=== PATIENT | male | born 1945 | race Caucasian/White ===

== ENCOUNTER → 2017-04-18 | Outpatient (CLI) | payer OTHER ==
--- NOTE | 2017-04-18 13:04 | DIAGNOSTIC IMAGING REPORT ---
ULTRASOUND LEFT VENOUS DOPP LOWER EXT UNILAT CLINICAL HISTORY: Left leg pain COMPARISON STUDY: No previous studies for comparison. FINDINGS: Real-time and color flow Doppler imaging were performed. Flow was seen within the femoral, popliteal and calf veins with no intraluminal thrombus demonstrated. The saphenous vein is patent. There are patent superficial varicosities. There is a 39 x 7 x 18 mm left popliteal cyst. IMPRESSION: No evidence of left lower extremity DVT. Electronically signed by: Ariel Sosa M.D. 04/18/2017 1:03 PM Dictated Date/Time: 04/18/2017 1:02 PM
== END | disposition home or self-care (01) ==
LOC: C.ULTRBC 12:30
PROVIDERS: ATTEND Nurse Practitioner
DX: M79.662 Pain in left lower leg (principal); M79.89 Other specified soft tissue disorders; Z86.718 Personal history of other venous thrombosis and embolism

== ENCOUNTER 2018-03-26 10:25 | Inpatient (IN) | payer OTHER ==
[2018-02-27 12:23] VITALS: BMI 35.0
--- NOTE | 2018-03-05 10:43 | PAT Medication Instructions ---
Service Date Mar 05, 2018. Current Home Medication List Amlodipine (Norvasc), 10 MG PO QPM Aspirin (Aspirin Ec), 81 MG PO QAM Atorvastatin (Lipitor), 10 MG PO QAM Calcipotriene-Betamethasone Di (Calcipotriene/Betamethaso 0.005-0.064 %), 1 DOSE TOP PRN Calcium Carbonate-Simethicone (Gas-X With Maalox Extra S), 1 TAB PO PRN Cholecalciferol (Vitamin D3), 1 CAP PO QAM Fluorouracil (Topical) (Efudex), 1 APPLN TOP PRN Fluticasone Propionate (Nasal) (Flonase Allergy Relief), 2 SPRAYS INTNAS QAM Lisinopril/Hctz (Zestoretic 20MG/25MG), 1 TAB PO QAM Naproxen (Aleve), 440 MG PO BID Omeprazole (Prilosec), 40 MG PO BID Ranitidine (Zantac), 300 MG PO HS Senna/Docusate Sod (Senokot S), 2 TAB PO QAM [Antihistamine], 100 MG PO HS Medication Instructions For Your Scheduled Surgery - Hold the following medications 10 days prior to surgery per surgeon: Naproxen (Aleve), 440 MG PO BID - Hold the following medications 24 hours prior to surgery: Calcipotriene-Betamethasone Di (Calcipotriene/Betamethaso 0.005-0.064 %), 1 DOSE TOP PRN Fluorouracil (Topical) (Efudex), 1 APPLN TOP PRN - Hold the following medications the morning of surgery: Calcium Carbonate-Simethicone (Gas-X With Maalox Extra S), 1 TAB PO PRN Cholecalciferol (Vitamin D3), 1 CAP PO QAM Lisinopril/Hctz (Zestoretic 20MG/25MG), 1 TAB PO QAM Senna/Docusate Sod (Senokot S), 2 TAB PO QAM - Take the following medications the morning of surgery with a sip of water: Aspirin (Aspirin Ec), 81 MG PO QAM Atorvastatin (Lipitor), 10 MG PO QAM Fluticasone Propionate (Nasal) (Flonase Allergy Relief), 2 SPRAYS INTNAS QAM Omeprazole (Prilosec), 40 MG PO BID - Take the following medications as scheduled the night before surgery: Amlodipine (Norvasc), 10 MG PO QPM Omeprazole (Prilosec), 40 MG PO BID Ranitidine (Zantac), 300 MG PO HS [Antihistamine], 100 MG PO HS If you have any questions please call us at [phone] or [phone] or [phone]
--- NOTE | 2018-03-05 11:12 | DIAGNOSTIC IMAGING REPORT ---
CHEST 2 VIEWS ROUTINE CLINICAL HISTORY: PAT preoperative evaluation COMPARISON STUDY: No previous studies for comparison. FINDINGS: The bones soft tissues and hemidiaphragms are normal. The cardiomediastinal silhouette is normal. The lungs are clear. The pulmonary vasculature is normal. Considerable degenerative change thoracic spine. IMPRESSION: No acute process. The above report was generated using voice recognition software. It may contain grammatical, syntax or spelling errors. Electronically signed by: Aydin Ziegler M.D. 03/05/2018 11:11 AM Dictated Date/Time: 03/05/2018 11:11 AM
--- NOTE | 2018-03-10 11:50 | HISTORY & PHYSICAL EXAMINATION ---
DATE OF ADMISSION: 03/26/2018 CHIEF COMPLAINT: Left knee pain. HISTORY OF PRESENT ILLNESS: A 72-year-old gentleman who presents for surgical treatment of his left knee. He has got a history of bilateral knee pain and discomfort for quite some time. He does have a history of multiple myelomas and was putting off a knee surgery until he has been cleared to this. He has now been off his chemotherapy for 5 months and cleared to proceed with knee surgery. The left knee bothers more than the right. He has taken anti-inflammatories which helped a little bit. He has had some GI irritation and therefore limited by the medicines. Pain has become more debilitating. It is affecting his quality of life and ability to get around. The more he walks, the more it hurts. He would like to have his left knee replaced. The patient has a history of a DVT in the past in his left leg 8 years ago due to immobilization. He has got no known clotting disorder and on a baby aspirin daily. 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 He does okay with titanium metals. He did have an ankle fusion in the past and had the metal stephanie taken out. PAST MEDICAL HISTORY: 1. Hypertension. 2. Sleep apnea with CPAP machine. 3. DVT in left lower extremity without known clotting disorder. 4. Hiatal hernia. 5. Gastroesophageal reflux disease. 6. History of multiple myeloma in remission. PREVIOUS SURGERIES: Include: 1. Left ankle arthrodesis. 2. Left ankle hardware removal. 3. Hiatal hernia. 4. Vein stripping. ALLERGIES: TAPE. CURRENT MEDICINES: Include: 1. Antihistamine 50 mg 2 tablets at bedtime. 2. Amlodipine 10 mg a day. 3. Baby aspirin 81 mg. 4. Lipitor 10 mg a day. 5. Calcipotriene 0.005% as needed. 6. Calcium carbonate. 7. Simethicone as needed. 8. Flonase nasal spray 2 sprays in each nostril. 8. Lisinopril/hydrochlorothiazide 20/25 once a day. 9. Naproxen 220 twice a day. 10. Omeprazole 40 mg twice a day. 11. Ranitidine 300 mg at bedtime. 12. Senna/docusate sodium 8.6/50 mg. 13. Vitamin E 5000 units. SOCIAL HISTORY: A 72-year-old male. He is from [place]. He is . One drinks per week. Does not chew. No smoking history. FAMILY HISTORY: Significant for kidney stones and blood clots. REVIEW OF SYSTEMS: Significant for this one DVT in the past. He does have history of vein stripping. Denies any chest pain or shortness of breath. No other history of DVT or PEs in the past other than this one episode. No known clotting disorder. PHYSICAL EXAMINATION: GENERAL: Physical examination reveals a healthy pleasant, middle-aged male. He looks to be in pretty good health. HEENT: Benign. NECK: Supple. No lymphadenopathy. LUNGS: Clear to auscultation. HEART: Has a regular rate and rhythm. ABDOMEN: Soft, nontender, nondistended. EXTREMITIES: Grossly neurovascularly intact except as follows: Examination of both knees reveals the patient ambulates independently. Examination of the left knee reveals fairly neutral alignment. He has got diffuse bony hypertrophy. Moderate size knee effusion. Range of motion is 5-125. No instability. No pain with hip motion. Examination of the right knee reveals slight varus alignment. He has got bony hypertrophy medially. Range of motion is 5-125. No instability. X-RAYS: X-rays of both knees were reviewed. He has advanced bilateral knee DJD. He has got tricompartment disease in the left and mostly medial compartment on the right. He has got some chondrocalcinosis throughout. 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 ASSESSMENT: A 72-year-old male with a history of apparent metal allergy, DVT and multiple myeloma with advanced bilateral knee degenerative joint disease, left side more symptomatic than the right. He is currently in remission from his multiple myeloma and would like to have his left knee replaced. PLAN: We are going to proceed with left knee replacement. The risks and benefits of this procedure were explained to the patient including but not limited to DVT, PE, , infection, neurological injury, vascular injury, bleeding problem, pain, limited range of motion, stiffness, failure to relieve symptoms, incomplete relief of symptoms, need for further surgery in the future, fracture, leg length inequality, nerve palsy, etc. The patient understands and desires to proceed. Informed consent was obtained. I did talk to him about with history of DVT, he is at risk for increased DVT and PE. We will use Xarelto postoperatively for 1 month. We did talk to him about holding his lisinopril the morning of surgery and Naprosyn 2 weeks before. He is planning to be discharged to home using his home health program and his 's assistance. Due to his apparent metal allergy, we will use a [employer] knee. We will also avoid putting metal stephanie in his skin and just use sutures. MALLORY
[2018-03-26] VITALS (8 sets, daily range): BP systolic 62–155; BP diastolic 39–88; PULSE 52–93; TEMP 36.6–36.8; O2SAT 95–97; Ht 177.8 cm; Wt 110.9 kg
[~2018-03-26] VITALS: Ht 177.8 cm; Wt 110.9 kg
[~2018-03-26 10:25] MED LIST: ACETAMINOPHEN 500 MG TAB PO SCH; AMLO10TA3 PO; ANTIHISTAMINE PO; ASPI81TA28 PO; ATOR10TA82 PO; BUPIVACAINE 0.5 % 5 MG/1 ML PF 10ML VIAL ONE; CALC0.02 TOP; CALCCHW9 PO; CEFAZOLIN 2000MG IV PUSH 15 ML IV SCH; CHOL2000 PO; FAMOTIDINE 20 MG TAB PO SCH; FLUO5CRE TOP; FLUT0.15 INTNAS; GABAPENTIN 300 MG CAP PO SCH; LACTATED RINGER'S 1000ML 1,000 ML IV SCH; LACTATED RINGER'S 1000ML 500 ML IV SCH; LACTATED RINGER'S 1000ML IV SCH; LISI-788 PO; METOCLOPRAMIDE HCL 10 MG TAB PO SCH; NAPR1TAB9 PO; PRLSR20 PO; RANI300T2 PO; ROPIVACAINE 0.5% 5 MG/ML 30 ML VIAL ONE; SENN-65 PO
--- NOTE | 2018-03-26 11:28 | History & Physical Bridge Note ---
H&P Re-Evaluation Bridge Note: I have examined the patient, reviewed the History & Physical and in the interval since the performance of the History & Physical I have noted the following changes of clinical significance: No changes noted
[2018-03-26] MEDS ORDERED: MIDAZOLAM HCL 1 MG/ML 2ML VIAL ONE ×2 (13:06)
[2018-03-26] MEDS ORDERED: BUPIVACAINE LIPOSOME 1/3% 266 MG/20 ML VIAL ONE (13:53)
[2018-03-26] MEDS ORDERED: SODIUM CHLORIDE 0.9% PF 50 ML VIAL ONE (13:53)
[2018-03-26] MEDS ORDERED: BACITRACIN 50000 UNIT VIAL ONE (13:53)
[2018-03-26] MEDS ORDERED: BUPIVACAINE 0.25% 30 ML VIAL ONE (13:54)
[2018-03-26] MEDS ORDERED: EpINEphrine INJ 1MG/ML AMP 1 MG/ML AMP ONE (13:54)
[2018-03-26] MEDS ORDERED: PROPOFOL IV EMULSION 10 MG/ML 20 ML VIAL ONE (14:06)
[2018-03-26] MEDS ORDERED: ONDANSETRON INJ 2 MG/ML 2 ML VIAL ONE (14:06)
[2018-03-26] MEDS ORDERED: ATROPINE SULFATE 0.1 MG/ML 5ML SYR IV PRN (14:30)
[2018-03-26] MEDS ORDERED: KETOROLAC TROMETHAMINE 15 MG/ML VIAL IV. PRN (14:30)
[2018-03-26] MEDS ORDERED: EpHEDrine SULFATE INJ 50 MG/ML AMP IV PRN (14:30)
[2018-03-26] MEDS ORDERED: ONDANSETRON INJ 2 MG/ML 2 ML VIAL IV PRN ×2 (14:30→16:15)
[2018-03-26] MEDS ORDERED: HYDROmorphone INJ 0.5 MG/0.5 ML SYR IV PRN ×2 (14:30→16:15)
[2018-03-26] MEDS ORDERED: PHENYLEPHRINE 100MCG/ML 5ML SYR IV PRN (14:30)
[2018-03-26] MEDS: BUPIVACAINE LIPOSOME 266 MG, BUPIVACAINE/EPINEPHRINE INJ 50 ML, SODIUM CHLORIDE 0.9% PF... INFIL SCH ×15 (15:40→15:51)
[2018-03-26] MEDS ORDERED: FENTANYL CITRATE INJ 50 MCG/1 ML 2 ML VIAL ONE (15:44)
--- NOTE | 2018-03-26 16:14 | [facility] Post Operative Brief Note ---
Immediate Operative Summary Operative Date Mar 26, 2018. Pre-Operative Diagnosis Degenerative Joint Disease, Left Knee Post-Operative Diagnosis Degenerative Joint Disease, Left Knee Procedure(s) Performed Left Total Knee Arthroplasty Surgeon Dr. Misty Burns Foreign [employer] Specialist Surgeon(s) Noa Garza PA-C Estimated Blood Loss 100 ml Findings Consistent with Post-Op Diagnosis Fluids (cc crystalloids) 1800 cc Specimens a. Bone and Tissue, Left Knee Drains None Anesthesia Type MAC Spinal Regional Complication(s) none Disposition Accompanied Pt To Recover: no Disposition: Recovery Room / PACU Overlapping Procedure I was present for: the critical portions of procedure. I was immediately available: during the entire case
[2018-03-26] MEDS ORDERED: [UNRECOGNIZED DRUG - OTHER] TOP SCH (16:15)
[2018-03-26] MEDS ORDERED: FLUOROURACIL TOP SCH (16:15)
[2018-03-26] MEDS ORDERED: BISACODYL 10 MG SUPP PR PRN (16:15)
[2018-03-26] MEDS ORDERED: CALCIUM CARBONATE SIMETHICONE PO SCH (16:15)
[2018-03-26] MEDS ORDERED: METOCLOPRAMIDE HCL INJ 5 MG/ML 2 ML VIAL IV PRN (16:15)
[2018-03-26] MEDS ORDERED: MAGNESIUM HYDROXIDE SUSP 30 ML UDC PO PRN (16:15)
[2018-03-26] MEDS ORDERED: [UNRECOGNIZED DRUG - OTHER] PO SCH (16:15)
[2018-03-26] MEDS ORDERED: SILVER SULFADIAZINE 1% CR 50 GM JAR EXT PRN (16:15)
[2018-03-26] MEDS ORDERED: TAMSULOSIN HCL 0.4 MG CAP PO PRN (16:15)
[2018-03-26] MEDS ORDERED: CEFAZOLIN IV 2,000 MG in DEXTROSE 5% 50ML 50 ML IV SCH (16:15)
[2018-03-26] MEDS ORDERED: ZOLPIDEM TARTRATE 5 MG TAB PO PRN (16:15)
[2018-03-26] MEDS ORDERED: ALUMINUM/MAGNESIUM/SIMETH (MAALOX MAX) 30 ML UDC PO PRN (16:15)
--- NOTE | 2018-03-26 16:45 | DIAGNOSTIC IMAGING REPORT ---
L KNEE 2 VIEWS ROUTINE CLINICAL HISTORY: Degenerative arthritis. Postoperative study. COMPARISON: Outside radiograph performed January 2018 DISCUSSION: There are postsurgical changes of a total left knee arthroplasty and patellar resurfacing. The femoral tibial components appear well seated. There is air present within the soft tissues consistent with recent surgery. IMPRESSION: Postsurgical changes of a total left knee arthroplasty. Electronically signed by: Ariel Sosa M.D. 03/26/2018 4:44 PM Dictated Date/Time: 03/26/2018 4:43 PM
--- NOTE | 2018-03-26 16:58 | Anesthesiology Progress Note ---
Anesthesia Post Op Note Date & Time Mar 26, 2018 at 16:58 Vital Signs Pain Intensity: 0 Vital Signs Past 12 Hours Date Time Temp Pulse Resp B/P (MAP) Pulse Ox O2 Delivery O2 Flow Rate FiO2 03/26/18 16:40 36.9 74 13 142/80 100 Room Air 03/26/18 16:30 82 18 128/84 0 Room Air 03/26/18 16:23 36.8 77 11 152/91 98 Room Air 03/26/18 11:14 36.8 93 22 133/88 95 Room Air Notes Mental Status: alert / awake / arousable, participated in evaluation Pt Amnestic to Procedure: Yes Nausea / Vomiting: adequately controlled Pain: adequately controlled Airway Patency, RR, SpO2: stable & adequate BP & HR: stable & adequate Hydration State: stable & adequate Neuraxial Anesthesia: was administered, sensory block is resolving Anesthetic Complications: no major complications apparent
[2018-03-26] MEDS: D5W AND 1/2NSS + 20MEQ KCL 1,000 ML IV SCH (18:07)
[2018-03-26] MEDS: TRAMADOL HCL 50 MG TAB PO PRN ×2 (18:52→19:37)
[2018-03-26] MEDS: FERROUS GLUCONATE 324 MG TAB PO SCH (19:01)
--- NOTE | 2018-03-26 19:17 | OPERATIVE REPORT ---
DATE OF OPERATION: 03/26/2018 SURGEON: Edward Burns MD MARKETING COMMUNICATIONS MANAGER: MERI Stout PREOPERATIVE DIAGNOSIS: Left knee degenerative joint disease. POSTOPERATIVE DIAGNOSIS: Left knee degenerative joint disease. PROCEDURE PERFORMED: Left cemented posterior stabilized total knee arthroplasty. COMPLICATIONS: None. ESTIMATED BLOOD LOSS: 100 mL. FLUID REPLACEMENT: 1800 mL crystalloid fluid replacement. TOURNIQUET TIME: 68 minutes at 300 mmHg. ANESTHESIA: Spinal with adductor canal block. DRAINS: None. SPECIMENS: Left knee sent for pathology. OPERATIVE INDICATIONS: A 72-year-old gentleman who has had a long history of bilateral knee pain and discomfort, left side greater than the right. He has been through extensive conservative treatment over the years, which became less successful for that. Unfortunately, he developed multiple myeloma and required treatment for that. He has been through treatment and now elected to proceed with total knee arthroplasty. The patient does have an apparent metal allergy. He has reaction to metal although he does okay with titanium. Therefore, we used a [employer] zirconium knee arthroplasty in place of skin nylon stitches as opposed to using stephanie. OPERATIVE FINDINGS: Operative findings revealed advanced left knee DJD. He had extensive grade 4 changes of the patellofemoral joint. He had focal grade 4 changes of the medial femoral condyle and medial tibial plateau as well as the lateral femoral condyle. He has a slight valgus deformity to his knee. Moderate-sized knee joint effusion. OPERATIVE IMPLANTS: Operative implants consisted of: 1. Gro[employer]hew size 7 posterior stabilized zirconium femoral component. 2. Gro[employer]hew size 6 tibial tray. 3. An 11 mm posterior stabilized polyethylene insert. 4. A 35 x 9 all poly patella. OPERATIVE PROCEDURE: The patient was taken to the operating room, identified, and placed on the operative room table in the supine position. All contact areas were appropriately padded. IV antibiotics were provided by the anesthesia team. A spinal anesthetic and adductor canal block had been provided in the holding area. Kirkland catheter was placed in a sterile fashion. The left thigh tourniquet was then placed and the left lower extremity was then prepped and draped in usual sterile fashion. Left leg was elevated and exsanguinated with Esmarch and tourniquet was placed at 300 mmHg. An anterior approach of the left knee was then performed through a longitudinal incision centered over the patella. Sharp dissection was carried through the subcutaneous tissues down to the level of the extensor mechanism. Medial parapatellar arthrotomy incision was made. Some subperiosteal dissection was carried out medially. The fat pad was resected from beneath the patellar tendon. Lateral patellofemoral ligament was released. Patella was everted and knee was flexed. The osteophytes were taken off the distal femur. The ACL and PCL were then released from the distal femur and the tibia subluxated anteriorly. The external tibial alignment jig was then placed in the anterior face of the tibia and removed 8 mm medially. Proximal tibial cut was made to remove about 3-4 mm of bone from the medial side. Attention was then sized to a size 6. Attention was then drawn to the femur. The distal femur was entered with a sharp drill bit. Intramedullary canal was suctioned. A left 6-degree valgus cutting guide was placed. Distal femoral cutting block was pinned in place. Distal femoral cut was made to take an additional 2 mm of bone off the distal femur. The femur was then sized to a size 70. We downsized this slightly. The AP cutting block was pinned parallel to the epicondylar axis, which was 6 degrees of external rotation. The anterior cut, anterior cord, posterior cut, posterior chamfer, and anterior chamfer cuts were then made. I then flexed the knee. The remnants of the medial and lateral menisci were excised. The osteophytes were taken off the posterior aspect of the femur. The femoral component was placed. The notch cutting guide was placed and the notch cut was made. The trochlear groove was placed. The tibia was subluxated anteriorly. The tibial tray was pinned in place. The drill and the stem punch were used to create a defect in the proximal tibia for the tibial tray. The knee was then trialed and the 11 mm insert fit most appropriately. Attention was drawn over the patella. The patella was cleaned of all soft tissues. Patella thickness measured 22 mm in thickness and was cut down to 14. It was sized to a size 35 patella. Lug holes were drilled for a 35 patella. Lateral osteophyte was removed. Patella button was placed. Knee was taken through range of motion, patella tracked very nicely with the no thumbs test. Attention was then drawn toward placement of permanent components. All trial components were removed. A bone plug was placed in the distal femur to limit blood loss. A double batch of Palacos G cement was mixed. A [employer]hew zirconium Journey II, size 7 posterior stabilized femoral component, size 6 tibial tray, and a 11 mm posterior stabilized polyethylene insert, a 35.9 all poly patella then cemented in place. Knee was brought out into full extension until cement hardened. A final cement check was then performed. The pericapsular tissues were injected with a total of 100 mL of a combination of 20 mL of Exparel, 30 mL of normal saline, 50 mL of 0.25% Marcaine with epinephrine. The patient did not get any tranexamic acid. The tourniquet was then let down for final tourniquet time of 68 minutes. Hemostasis was assured using electrocautery. The wound was once again irrigated. The extensor mechanism was then closed with a combination of #1 PDS suture and #1 Vicryl suture in a [id number] fashion. Extensor mechanism was checked and found to be intact. The subcutaneous tissues were then closed with 2-0 Dexon suture in a buried interrupted fashion. Skin was then closed with 3-0 nylon suture in a horizontal mattress fashion. The leg was then cleaned and dried and a sterile dressing of Xeroform, 4 x 4's, sterile cast padding, and Jese bandage were applied. The patient transferred to the recovery room in stable condition. The patient tolerated the procedure well with no complication. All needle and sponge counts were correct at the end of the operation. I attest to the content of the Intraoperative Record and any orders documented therein. Any exception s are noted below.
[2018-03-26] MEDS: KETOROLAC TROMETHAMINE 15 MG/ML VIAL IV. SCH (19:38)
[2018-03-26] MEDS: DOCUSATE SODIUM 100 MG CAP PO SCH (20:22)
[2018-03-26] MEDS: RANITIDINE HCL 150 MG TAB PO SCH (20:22)
[2018-03-26] MEDS: PANTOprazole SOD 40 MG TAB PO SCH (20:22)
[2018-03-26] MEDS: SENNA 8.6 MG TAB PO SCH (20:23)
[2018-03-26] MEDS ORDERED: ANTIHISTAMINE PO SCH (21:00)
[2018-03-26] MEDS: CEFAZOLIN IV 2,000 MG in SYRINGE 0 ML IV SCH (21:49)
[2018-03-26] MEDS: ACETAMINOPHEN 500 MG TAB PO SCH (21:50)
[2018-03-27] MEDS: D5W AND 1/2NSS + 20MEQ KCL 1,000 ML IV SCH ×3 (01:55→13:59)
[2018-03-27] MEDS: KETOROLAC TROMETHAMINE 15 MG/ML VIAL IV. SCH ×3 (01:57→13:58)
[2018-03-27 02:45] VITALS: BP 138/73; PULSE 74; TEMP 36.7; O2SAT 96
[2018-03-27 04:30] LABS: HEMATOCRIT 32.9 % (42-52); HEMOGLOBIN 11.3 g/dL (14.0-18.0); MEAN CELL VOLUME 88.2 fL (80-100); MEAN CORPUSCULAR HEMOGLOBIN 30.3 pg (25-34); MEAN CORPUSCULAR HGB CONC 34.3 g/dl (32-36); MEAN PLATELET VOLUME 9.2 fL (7.4-10.4); PLATELET COUNT 193 K/uL (130-400); RED CELL DISTRIBUTION WIDTH CV 12.9 % (11.5-14.5); RED CELL DISTRIBUTION WIDTH SD 41.8 fL (36.4-46.3); WHITE BLOOD COUNT 8.92 K/uL (4.8-10.8)
[2018-03-27 04:52] LABS: ALBUMIN 2.8 gm/dl (3.4-5.0); CALCIUM 8.9 mg/dl (8.5-10.1); CREATININE 0.82 mg/dl (0.60-1.40); POTASSIUM 4.6 mmol/L (3.5-5.1); TOTAL PROTEIN 5.6 gm/dl (6.4-8.2)
[2018-03-27] MEDS: CEFAZOLIN IV 2,000 MG in SYRINGE 0 ML IV SCH (06:00)
[2018-03-27] MEDS: ACETAMINOPHEN 500 MG TAB PO SCH ×3 (06:01→21:22)
[2018-03-27 07:29] VITALS: BP 121/70; PULSE 79; TEMP 36.6; O2SAT 96
--- NOTE | 2018-03-27 07:54 | Anesthesiology Progress Note ---
Anesthesia Post Op Note Date & Time Mar 27, 2018 at 07:53 Vital Signs Pain Intensity: 8.0 Vital Signs Past 12 Hours Date Time Temp Pulse Resp B/P (MAP) Pulse Ox O2 Delivery O2 Flow Rate FiO2 03/27/18 07:29 36.6 79 18 121/70 (87) 96 Room Air 03/27/18 02:45 36.7 74 16 138/73 (94) 96 CPAP 03/26/18 23:15 Room Air CPAP 03/26/18 22:46 36.8 71 16 127/74 (91) 97 Room Air 03/26/18 21:53 74 150/69 (96) 03/26/18 20:40 76 111/61 (78) 03/26/18 20:35 72 105/88 (94) 03/26/18 20:30 52 62/39 (47) Notes Mental Status: alert / awake / arousable, participated in evaluation Pt Amnestic to Procedure: Yes Nausea / Vomiting: adequately controlled Pain: adequately controlled Airway Patency, RR, SpO2: stable & adequate BP & HR: stable & adequate Hydration State: stable & adequate Anesthetic Complications: no major complications apparent
--- NOTE | 2018-03-27 08:26 | PROGRESS NOTE ---
DATE: 03/27/2018 SUBJECTIVE: A 72-year-old gentleman postop day 1 from a left knee replacement. He is doing pretty well. Pain is controlled. He had a reasonable night. No chest pain, no shortness of breath. Not feeling dizzy or lightheaded. OBJECTIVE: VITAL SIGNS: Temperature 36.6. Stable. GENERAL: Examination shows a pleasant elderly male. He is lying in bed, looks pretty comfortable. EXTREMITIES: Examination of the left leg reveals the leg to be well aligned. Dressing is clean, dry, and intact. He can dorsiflex and plantarflex his foot appropriately. He is neurologically intact. LABORATORY DATA: Hemoglobin 11.3, hematocrit 32.9. Electrolytes are stable. ASSESSMENT: A 72-year-old gentleman postop day 1 from a left knee replacement, doing well. His pain is controlled. He is neurologically intact. PLAN: 1. DVT prophylaxis including thigh-high TEDs, SCDs, and we are going to treat him with Xarelto for 30 days due to his history of thrombosis in the past and his multiple myeloma. 2. PT/OT. Weightbear as tolerated. Left total knee protocol. 3. Pain control, doing well with current pain regimen. 4. Disposition. He is hoping to be discharged to home with some home health once adequately recovered.
[2018-03-27] MEDS: FLUTICASONE PROPIONATE NA SPR 16 GM BTL SCH (08:54)
[2018-03-27] MEDS: MULTIVITAMIN TAB PO SCH (08:54)
[2018-03-27] MEDS: PANTOprazole SOD 40 MG TAB PO SCH ×2 (08:55→19:24)
[2018-03-27] MEDS: FERROUS GLUCONATE 324 MG TAB PO SCH ×3 (08:55→18:27)
[2018-03-27] MEDS: DOCUSATE SODIUM/SENNA 50/8.6MG TAB PO SCH (08:55)
[2018-03-27] MEDS: CHOLECALCIFEROL 1000 INTER.UNIT TAB PO SCH (08:55)
[2018-03-27] MEDS: ATORVASTATIN 10 MG TAB PO SCH (08:55)
[2018-03-27] MEDS: AMLODIPINE BESYLATE 5 MG TAB PO SCH (08:56)
[2018-03-27] MEDS: LISINOPRIL/HCTZ 20/25MG TAB PO SCH (08:56)
[2018-03-27] MEDS: DOCUSATE SODIUM 100 MG CAP PO SCH ×2 (08:56→21:20)
[2018-03-27] MEDS ORDERED: PANTOprazole SOD 40 MG TAB PO SCH (09:00)
[2018-03-27] MEDS: TRAMADOL HCL 50 MG TAB PO PRN ×4 (09:28→23:38)
[2018-03-27 10:01] VITALS: BP 160/77; PULSE 88; O2SAT 97
[2018-03-27] MEDS: ASPIRIN 81 MG ECTAB PO SCH (10:03)
[2018-03-27 11:11] VITALS: BP 146/74; PULSE 90; TEMP 36.4; O2SAT 94
[2018-03-27 15:00] VITALS: BP 131/67; PULSE 90; TEMP 36.8; O2SAT 97
[2018-03-27] MEDS ORDERED: RIVAROXABAN 10 MG TAB PO SCH (17:00)
[2018-03-27] MEDS: SENNA 8.6 MG TAB PO SCH (21:21)
[2018-03-27] MEDS: RANITIDINE HCL 150 MG TAB PO SCH (21:21)
[2018-03-27 23:29] VITALS: BP 163/79; PULSE 94; TEMP 36.7; O2SAT 92
[2018-03-28] MEDS: TRAMADOL HCL 50 MG TAB PO PRN ×3 (05:05→13:06)
[2018-03-28] MEDS: ACETAMINOPHEN 500 MG TAB PO SCH (05:06)
[2018-03-28 06:40] VITALS: BP 156/77; PULSE 88; TEMP 37.3; O2SAT 94
[2018-03-28 08:16] VITALS: O2SAT 94
[2018-03-28 08:19] VITALS: BP 156/77; PULSE 88; TEMP 37.3; O2SAT 94
[2018-03-28] MEDS ORDERED: ULT50X PO (08:31)
[2018-03-28] MEDS ORDERED: XRL10 PO (08:31)
[2018-03-28] MEDS ORDERED: ACET-24 PO (08:31)
--- NOTE | 2018-03-28 08:33 | Discharge Instructions ---
Discharge Instructions Date of Service Mar 28, 2018. Admission Reason for Admission: Left Knee Degenerative Joint Disease Discharge Discharge Diagnosis / Problem: Left Knee Replacement Discharge Goals Goal(s): Decrease discomfort, Improve function, Increase independence, Improve disease control, Therapeutic intervention Activity Recommendations Activity Limitations: per Instructions/Follow-up section Weightbearing Status: Left weightbearing . Instructions / Follow-Up Instructions / Follow-Up ACTIVITY RECOMMENDATIONS: Physical Therapy: * You will go to physical therapy three times each week for four to six weeks after your surgery in order to regain your knee range of motion and to retrain your knee to work properly. * It is just as important to make sure you are getting your knee perfectly straight as it is to regain your knee bend. * Taking a pain pill an hour before therapy can help you have a more productive and comfortable therapy session. Home Exercise: * You were shown a series of exercises (heel props, heel slides, etc.) in the hospital. Do these exercises three to four times each day including the exercises you were shown in physical therapy. Walking: * Get up and walk several times each day. For the first four weeks, try not to stand or walk for more than one hour at a time. If you do stand or walk for more than one hour, you will not hurt anything, but your knee and leg will likely swell. * As you feel comfortable, you may change from the walker or crutches to a cane and then to independent walking. MEDICATIONS: New Medicine: * You will likely be taking one or more of these medications: 1. Tramadol - A quick and shorter-acting pain medication. Take one to two tablets every four to six hours to lessen your pain. 2. Xarelto - Thins your blood to lessen the chance of forming a blood clot. * The most common side effects of pain medicine and iron are nausea and constipation. If nausea or constipation is too much of a problem or if you have any questions about your new medicines or doses, call [facility] at . We will try to help you manage these issues. VERY IMPORTANT TO READ AND REVIEW" Pain: * The immediate post-operative period after knee replacement surgery is often quite painful. * You are given a prescription for pain medicine. You should take it, as directed, when you need it, especially before physical therapy and before going to bed. Pain that interferes with sleep is very common and can last several months. * You will likely need pain medicine for the first four to six weeks. It will not stop all of the pain. The pain will lessen and as you feel better, you may change to milder pain medicine such as Tylenol. * The most common side effects of pain medicine are nausea and constipation, so don't take more than you need. SPECIAL CARE INSTRUCTIONS: TEDs/Elastic Stockings: * The white elastic stockings help limit swelling and prevent blood clots from forming in your legs. The more you wear them, the more they work. * Wear them for six weeks after knee replacement surgery and four weeks after partial knee replacement. Prevention of Infection: * Take antibiotics one hour before any dental cleaning, dental work, urological procedure, gastrointestinal procedure or any invasive surgery in order to prevent your new joint from getting infected. * You may get the antibiotics from the doctor performing the procedure or you may call our office at before and we will call in a prescription to the pharmacy of your choice. Things to Watch For: * Drainage from the incision site that occurs more than one week after your surgery. * Severely increased knee/leg pain or swelling. * Increased redness at the incision site. * Fever above 102 degrees Fahrenheit. * Unusual chest pain or shortness of breath. * Unusual pain or burning with urination. Call [facility] at with any of the above problems or if you have any questions about your medicines or recovery. FOLLOW UP VISIT: Make an appointment to see your doctor for approximately two weeks after surgery for a progress check and staple removal by calling the office at . Current Hospital Diet Patient's current hospital diet: Regular Diet Discharge Diet Recommended Diet: Regular Diet Procedures Procedures Performed: Left Total Knee Arthroplasty Pending Studies Studies pending at discharge: no Medical Emergencies . Who to Call and When: Medical Emergencies: If at any time you feel your situation is an emergency, please call [phone] immediately. . Non-Emergent Contact Non-Emergency issues call your: Surgeon . "Provider Documentation" section prepared by Edward Burns. .
[2018-03-28 08:43] VITALS: BP 154/79; PULSE 89
[2018-03-28] MEDS: DOCUSATE SODIUM 100 MG CAP PO SCH (08:44)
[2018-03-28] MEDS: CHOLECALCIFEROL 1000 INTER.UNIT TAB PO SCH (08:44)
[2018-03-28] MEDS: DOCUSATE SODIUM/SENNA 50/8.6MG TAB PO SCH (08:44)
[2018-03-28] MEDS: FERROUS GLUCONATE 324 MG TAB PO SCH ×2 (08:45→13:06)
[2018-03-28] MEDS: MULTIVITAMIN TAB PO SCH (08:45)
[2018-03-28] MEDS: FLUTICASONE PROPIONATE NA SPR 16 GM BTL SCH (08:45)
[2018-03-28] MEDS: LISINOPRIL/HCTZ 20/25MG TAB PO SCH (08:46)
[2018-03-28] MEDS: ATORVASTATIN 10 MG TAB PO SCH (08:46)
[2018-03-28] MEDS: AMLODIPINE BESYLATE 5 MG TAB PO SCH (08:46)
[2018-03-28] MEDS: PANTOprazole SOD 40 MG TAB PO SCH (08:46)
[2018-03-28] MEDS: ASPIRIN 81 MG ECTAB PO SCH (08:46)
--- NOTE | 2018-03-28 08:59 | PROGRESS NOTE ---
DATE: 03/28/2018 SUBJECTIVE: A 72-year-old gentleman postop day 2 from a left knee replacement. He is doing pretty well. Having significant pain. He is doing okay with the pain medicine. No chest pain or shortness of breath. Not feeling dizzy or lightheaded. OBJECTIVE: VITAL SIGNS: Temperature 37.3. Vital signs stable. GENERAL: Reveals a pleasant, middle-aged male. He is sitting up in the bedside chair and looks pretty comfortable. EXTREMITIES: Examination of the left leg reveals the dressing to be clean, dry, and intact. Not much in the way of swelling. No drainage. Calf is soft and supple. He is neurologically intact. ASSESSMENT: A 72-year-old gentleman postop day 2 from left knee replacement, doing pretty well. Having some pain which is unexpected. Given the option, I have increased his pain medicine oxycodone, but he really would like to just stick with the tramadol and the Tylenol. PLAN: 1. DVT prophylaxis including thigh-high TEDs, SCDs, and Xarelto for a month. 2. PT, OT. Weight bear as tolerated. Left total knee protocol. 3. Pain control. We are going to stick with the tramadol and the Tylenol and try and use it frequently on a more scheduled pattern. 4. Disposition: Plan to discharge to home with some home health later today if doing okay.
== END 2018-03-28 14:17 | disposition home health service (06) | DRG 470 ==
LOC: C.ACU 10:25 → C.3E 16:20 → ENRESERV 16:47 → UNDODISIN 03-28 10:31
PROVIDERS: ADMIT Orthopaedic Surgery Sports Medicine; ATTEND Orthopaedic Surgery Sports Medicine
PROC: 0SRD0J9 Replacement of Left Knee Joint with Synthetic Substitute, Cemented, Open Approach (ICD-10-PCS; principal; 2018-03-26 13:15)
DX: M17.12 Unilateral primary osteoarthritis, left knee (principal); I10 Essential (primary) hypertension; G47.30 Sleep apnea, unspecified; K21.9 Gastro-esophageal reflux disease without esophagitis; Z79.82 Long term (current) use of aspirin; Z79.899 Other long term (current) drug therapy; Z86.718 Personal history of other venous thrombosis and embolism; Z91.09 Other allergy status, other than to drugs and biological substances

== ENCOUNTER → 2018-03-31 | Outpatient (CLI) | payer OTHER ==
[~2018-03-31] MED LIST changes: +ACET-24 PO; -ACETAMINOPHEN 500 MG TAB PO SCH; -BUPIVACAINE 0.5 % 5 MG/1 ML PF 10ML VIAL ONE; -CEFAZOLIN 2000MG IV PUSH 15 ML IV SCH; -FAMOTIDINE 20 MG TAB PO SCH; -GABAPENTIN 300 MG CAP PO SCH; -LACTATED RINGER'S 1000ML 1,000 ML IV SCH; -LACTATED RINGER'S 1000ML 500 ML IV SCH; -LACTATED RINGER'S 1000ML IV SCH; -METOCLOPRAMIDE HCL 10 MG TAB PO SCH; -ROPIVACAINE 0.5% 5 MG/ML 30 ML VIAL ONE; +ULT50X PO; +XRL10 PO
--- NOTE | 2018-03-31 16:02 | DIAGNOSTIC IMAGING REPORT ---
L VENOUS DOPP LOWER EXT UNILAT HISTORY: 72 years-old Male LEFT LEG PAIN acute left leg pain COMPARISON: Duplex venous Doppler study 04/18/2017 TECHNIQUE: Multiple real-time sonographic images of the left lower extremity deep venous structures were obtained assessing grayscale appearance, color and spectral flow FINDINGS: There is normal flow, compressibility, phasicity and augmentation of the left lower extremity venous structures. Mild subcutaneous edema of the lower leg. The calf veins are not well-seen secondary to patient body habitus. IMPRESSION: No sonographic evidence of deep venous thrombosis. The above report was generated using voice recognition software. It may contain grammatical, syntax or spelling errors. Electronically signed by: Marquis Guan M.D. 03/31/2018 4:00 PM Dictated Date/Time: 03/31/2018 3:59 PM
== END | disposition home or self-care (01) ==
LOC: C.ULTRBC 15:29
PROVIDERS: ATTEND Orthopaedic Surgery Sports Medicine
DX: M79.89 Other specified soft tissue disorders (principal); M79.605 Pain in left leg; Z96.652 Presence of left artificial knee joint

== ENCOUNTER 2022-02-26 07:58 | Observation (INO) ==
--- NOTE | 2022-02-22 08:59 | PAT Medication Instructions ---
Medication Instructions Date of Service February 22, 2022 Home Medications amlodipine 10 mg tablet 10 mg PO QAM ascorbic acid (vitamin C) 1,000 mg tablet (Vitamin C) 1 g PO QAM aspirin 81 mg tablet,delayed release (Aspir-) 81 mg PO QAM atorvastatin 10 mg tablet 10 mg PO QAM lisinopril 20 mg-hydrochlorothiazide 25 mg tablet 1 tab PO QPM naproxen sodium 220 mg tablet (Aleve) 440 mg PO QAM omeprazole 40 mg capsule,delayed release 40 mg PO BID bisacodyl 5 mg tablet,delayed release (Dulcolax (bisacodyl)) 10 mg PO QAM cholecalciferol (vitamin D3) 25 mcg (1,000 unit) tablet (Vitamin D3) 25 mcg PO Q OTHER DAY docusate sodium 100 mg capsule (Stool Softener) 200 mg PO QAM docusate sodium 100 mg tablet (Stool Softener) 100 mg PO QPM diphenhydramine HCl 25 mg capsule 25 mg PO DAILY PRN ASK your surgeon for instructions naproxen sodium 220 mg tablet (Aleve) 440 mg PO QAM DO NOT take the morning of surgery ascorbic acid (vitamin C) 1,000 mg tablet (Vitamin C) 1 g PO QAM bisacodyl 5 mg tablet,delayed release (Dulcolax (bisacodyl)) 10 mg PO QAM cholecalciferol (vitamin D3) 25 mcg (1,000 unit) tablet (Vitamin D3) 25 mcg PO Q OTHER DAY docusate sodium 100 mg capsule (Stool Softener) 200 mg PO QAM diphenhydramine HCl 25 mg capsule 25 mg PO DAILY PRN Take morning of surgery With a small sip of water, OTHERWISE NOTHING TO EAT OR DRINK AFTER MIDNIGHT: amlodipine 10 mg tablet 10 mg PO QAM aspirin 81 mg tablet,delayed release (Aspir-) 81 mg PO QAM (continue as normal unless told otherwise by surgeon) atorvastatin 10 mg tablet 10 mg PO QAM omeprazole 40 mg capsule,delayed release 40 mg PO BID Take evening before surgery lisinopril 20 mg-hydrochlorothiazide 25 mg tablet 1 tab PO QPM omeprazole 40 mg capsule,delayed release 40 mg PO BID docusate sodium 100 mg tablet (Stool Softener) 100 mg PO QPM diphenhydramine HCl 25 mg capsule 25 mg PO DAILY PRN (if needed) Other Notes If you have any questions please call us at [phone] or [phone] or [phone] or [phone]
--- NOTE | 2022-02-22 09:25 | Anesthesiology Consultation ---
Date of Service February 22, 2022 Assessment & Plan (1) Encounter for pre-operative examination: - COVID screening: Per assessment on 02/22: No known COVID-19 positive contacts or current COVID-19 related symptoms. Travel screen negative. Patient vaccinat ed. Preop Covid test done 02/22 (PAT). Results pending. - Anesthesia hx: Attempted spinal left ankle fusion 20+ years ago was unsuccessful and had to be done under general anesthesia- pt had significant headache and post-op nausea after surgery. Subsequently had Left TKA (03/26/18): SAB at L3/4 + PNB at [facility]. No issues noted per post-op anesthesia progress note. Pt does note some awareness perioperatively but reports no post-op headache or nausea. Chart Review Chart Review: Acceptable Risk for Surgery and Patient seen in Pre Admission Testing Teaching & Discussion Pre-Anesthesia Teaching/Discussion Notes: Instructed NPO after midnight before surgery,except medications with 15 cc of water. Medication instructions provided according to the PAT guidelines. History Surgery Operation Date: 02/26/22 07:00 Proposed Procedures p Right Total Knee Arthroplasty - Edward Burns MD Height/Weight Height: 5 ft 8 in Weight: 93.2 kg Allergies Allergy/AdvReac Type Severity Reaction Status Date / Time nickel Allergy Intermediate Swelling/pain Verified 02/22/22 11:07 at surgery site (knee) adhesive Allergy Mild Skin Verified 02/22/22 11:07 redness Medications Home Medications Medication Instructions Recorded Confirmed Last Taken amlodipine 10 mg tablet 10 mg PO QAM 05/10/19 02/20/22 05/21/19 06:00 ascorbic acid (vitamin C) 1,000 mg 1 g PO QAM 05/10/19 02/20/22 05/20/19 tablet (Vitamin C) aspirin 81 mg tablet,delayed 81 mg PO QAM 05/10/19 02/20/22 05/17/19 release (Aspir-) atorvastatin 10 mg tablet 10 mg PO QAM 05/10/19 02/20/22 05/21/19 06:00 lisinopril 20 1 tab PO QPM 05/10/19 02/20/22 05/20/19 mg-hydrochlorothiazide 25 mg tablet naproxen sodium 220 mg tablet 440 mg PO QAM 05/10/19 02/20/22 05/17/19 (Aleve) omeprazole 40 mg capsule,delayed 40 mg PO BID 05/10/19 02/20/22 05/21/19 06:00 release bisacodyl 5 mg tablet,delayed 10 mg PO QAM 08/06/21 02/20/22 Unknown release (Dulcolax (bisacodyl)) cholecalciferol (vitamin D3) 25 25 mcg PO Q OTHER DAY 08/06/21 02/20/22 Unknown mcg (1,000 unit) tablet (Vitamin D3) docusate sodium 100 mg capsule 200 mg PO QAM 08/06/21 02/20/22 Unknown (Stool Softener) docusate sodium 100 mg tablet 100 mg PO QPM 08/06/21 02/20/22 Unknown (Stool Softener) diphenhydramine HCl 25 mg capsule 25 mg PO DAILY PRN 02/20/22 02/20/22 Unknown Past Medical History Medical History Carpal tunnel syndrome of right wrist Chronic back pain DVT (deep venous thrombosis) LLE x2 (most recent 14 years ago) felt r/t long flight- now on ASA GERD (gastroesophageal reflux disease) Hx Hyperlipidemia Hypertension Multiple myeloma Hx chemo, in remission per pt Osteoarthritis Sciatic leg pain Sleep apnea CPAP (compliant) Exercise / Class Metabolic Activity II 4-5 Yardwork/Stairs/Walk up hill (one FS (no CP, no SOB)) Past Family History Family History Mother Family hx colonic polyps Other No family history of adverse response to anesthesia Past Surgical History Surgical History History of ankle surgery LEFT ANKLE FUSION History of colonoscopy History of esophagogastroduodenoscopy (EGD) History of parathyroidectomy History of total knee replacement Left TKA (03/26/18): SAB at L3/4 + PNB at [facility]. No issues noted per post-op anesthesia progress note. Hx of hernia repair Hx of vasectomy Status post epidural steroid injection Past Anesthesia History No Family Hx of Anesthesia Complications and Other Attempted spinal left ankle fusion 20+ years ago was unsuccessful and had to be done under general anesthesia- pt had significant headache and post-op nausea after surgery. Subsequently had Left TKA (03/26/18): SAB at L3/4 + PNB at [facility]. No issues noted per post-op anesthesia progress note. Pt does note some awareness perioperatively but reports no post-op headache or nausea. History of PONV No Hx of PONV and No Hx of Motion Sickness Social History Smoking Status: Former smoker Do You Dip or Chew Tobacco: No Smoking End Date: Quit 20 yrs ago Hx Alcohol Use: Yes Alcohol type: beer and wine alcohol intake frequency: a few times a week Hx Substance Use: No substance use type: does not use Review of Systems Patient denies chest pain, shortness of breath, dyspnea on exertion, fever, chills, cough, wheezing, palpitations. Physical Exam Vital Signs VITALS BP 166/77 P 62 TEMP 98.6 SP02 97%RA RESP 16 PHYSICAL Full cervical extension range of motion. Full TMJ range of motion. TMD 3.5 finger breaths Mallampati Score 3 Dentition: several missing molars Lungs: clear throughout to auscultation Cardiac: regular rate and rhythm, no murmurs noted Spine: ? kyphoscoliosis Carotid arteries: negative bruit Extremities: no edema Lab Results Anesthesia Preop Results Results Anesthesia Widget: WBC 3.49 K/uL (4.8-10.8) L 02/04/22 Hgb 12.5 g/dL (14.0-18.0) L 02/04/22 Hct 36.5 % (42-52) L 02/04/22 Plt 219 K/uL (130-400) 02/04/22 Na 136 mmol/L (136-145) 02/04/22 K 3.7 mmol/L (3.5-5.1) 02/04/22 Cl 101 mmol/L (98-107) 02/04/22 CO2 31 mmol/L (21-32) 02/04/22 BUN 17 mg/dl (6-23) 02/04/22 Creat 0.60 mg/dl (0.6-1.4) 02/04/22 Glucose Level 115 mg/dl (70-99(Fasting)) H 02/04/22 PT 11.0 Seconds (9.0-12.0) 02/04/22 PTT 26.0 Seconds (21.0-31.0) 02/04/22 INR 1.0 (0.9-1.1) 02/04/22 Blood Type O Positive 02/04/22 Antibody Screen NEGATIVE 02/04/22 Testing Laboratory Results Low WBC- surgeon's office aware of preop testing done 02/04* Electrocardiogram Date: 02/22/22 NSR at 62bpm. LAFB. Chest X-Ray Date: 02/22/22 FINDINGS: Frontal and lateral radiographs of the chest demonstrate the cardiomediastinal silhouette to be within normal limits. There is eventration of the hemidiaphragms posteriorly. The lungs are clear of alveolar opacities. There is no evidence for effusion bilaterally. There is no evidence for vascular congestion. There is no acute osseous pathology. Minimal old anterior wedge deformities are seen within the thoracic spine with an exaggerated kyphotic curvature. The bones are osteopenic. IMPRESSION: No acute cardiopulmonary disease.
--- NOTE | 2022-02-23 09:39 | History and Physical Report ---
DATE OF ADMISSION: 02/26/2022. CHIEF COMPLAINT: Persistent right knee pain and discomfort. HISTORY OF PRESENT ILLNESS: The patient is a 76-year-old gentleman who presents for surgery of his r ight knee. Got a long history of knee problems. He has left knee replaced about 3-1/2 years ago. Racheal maravilla is doing well from this. He continues to be bothered by right knee pain. He is actually scheduled in the past, but canceled due to the COVID epidemic. He now comes back in for surgery. Pain is janes bal throughout his knee. Increased with weightbearing. The more he is up and on it, the more it niranjan ts. He would like to have his knee replaced. PAST MEDICAL HISTORY: Significant for: 1. Sleep apnea with CPAP machine. 2. Hypertension. 3. Elevated cholesterol. 4. Obesity. 5. Gastroesophageal reflux disease. 6. Back pain/sciatica. 7. Kidney stones. PAST SURGICAL HISTORY: Includes: 1. Left knee replacement done 03/26/2018. 2. Ankle surgery. ALLERGIES: NICKEL. CURRENT MEDICATIONS: Include: 1. Amlodipine. 2. Vitamin C. 3. Aspirin. 4. Atorvastatin. 5. Dulcolax. 6. Vitamin D3. 7. Lisinopril. 8. Hydrochlorothiazide. 9. Aleve. 10. Omeprazole. 11. Ranitidine. SOCIAL HISTORY: Significant for 75-year-old male. He is from [place]. He does not smoke. No sig nificant alcohol intake. FAMILY HISTORY: Noncontributory. REVIEW OF SYSTEMS: Negative for diabetes. No chest pain or shortness of breath. No history of DVT or PE. He apparently does have a NICKEL ALLERGY. PHYSICAL EXAMINATION: GENERAL: Shows a pleasant, elderly male. Looks to be in pretty good health. HEENT: Benign. NECK: Supple. No lymphadenopathy. LUNGS: Clear to auscultation. HEART: Regular rate and rhythm. ABDOMEN: Soft, nontender, nondistended. EXTREMITIES: Grossly neurovascularly intact except as follows. Examination of the right knee revealed patient ambulates with a bit of a limp. He has got varus alig nment to his knee. He has got bony hypertrophy medially. Small knee effusion. Range of motion 5-12 0. No instability. X-RAYS: X-rays of the right knee were reviewed. It shows advanced right knee degenerative joint dis ease. He has got complete loss of his medial joint space. He has got some chondrocalcinosis. He pittman s got tricompartmental disease. The left knee replacement looks to be in good position. 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 He has failed conservative treatment and would like to have his right knee replaced. The left knee is doing well. We will plan for him to proceed with the right knee replacement. The risks and benefits of this procedure were explained to the patient and include but not limited to DVT, PE, radha th, infection, neurological injury, vascular injury, bleeding problem, pain, limited range of motion, stiffness, failure to relieve symptoms, incomplete relief of symptoms, need for further surgery in t he future, fracture, leg length inequality, nerve palsy, etc. The patient understands and desires to proceed. Informed consent was obtained. Patient does have a NICKEL ALLERGY, so we will use a [employer] knee replacement with a zirconium femoral component. He has also requested that we not u se stephanie due to his NICKEL ALLERGY and we will leave sutures in the skin. As far as discharge plan s, he is planning to be discharged to home using [facility] program. Job ID: [id number]
[~2022-02-26 07:58] MED LIST changes: -ACET-24 PO; +ACETAMINOPHEN 500 MG TAB PO SCH; -AMLO10TA3 PO; -ANTIHISTAMINE PO; -ASPI81TA28 PO; -ATOR10TA82 PO; +BUPIVACAINE 0.25% 30 ML VIAL ONE; +BUPIVACAINE 0.5 % 5 MG/1 ML PF 10ML VIAL ONE; +BUPIVACAINE LIPOSOME/PF 266 MG, BUPIVACAINE/EPINEPHRINE 50 ML, SODIUM CHLORIDE 0.9% 30 ... INFIL SCH; -CALC0.02 TOP; -CALCCHW9 PO; -CHOL2000 PO; +DEXAMETHASONE SOD INJ 4 MG/ML VIAL ONE; +EPINEPHrine INJ 1 MG/ML AMP ONE; +FAMOTIDINE 20 MG TAB PO SCH; -FLUO5CRE TOP; -FLUT0.15 INTNAS; +GABAPENTIN 300 MG CAP PO SCH; -LISI-788 PO; +LR 500ML BOLUS, THEN 15ML/HR IV SCH; +LR 60ML/HR IV SCH; +METOCLOPRAMIDE HCL 10 MG TABLET PO SCH; -NAPR1TAB9 PO; -PRLSR20 PO; -RANI300T2 PO; -SENN-65 PO; +TRANEXAMIC ACID 1,000 MG **IV Intra-op IV SCH; -ULT50X PO; -XRL10 PO; +ceFAZolin 2000MG 2,000 MG/15 ML SYR IV SCH
[2022-02-26] MEDS ORDERED: fentaNYL citrate 100 MCG/2 ML VIAL ONE (09:35)
[2022-02-26] MEDS ORDERED: MIDAZOLAM HCL 1 MG/ML 2ML VIAL ONE (09:35)
[2022-02-26] MEDS ORDERED: PROPOFOL IV EMULSION 10 MG/ML 20 ML VIAL IV ONE (11:00)
[2022-02-26] MEDS ORDERED: SODIUM CHLORIDE 0.9% PF 50 ML VIAL ONE (11:03)
[2022-02-26] MEDS ORDERED: BUPIVACAINE/EPINEPHRINE 0.25% 1:200,000 30 ML VIAL ONE (11:03)
[2022-02-26] MEDS ORDERED: BUPIVACAINE LIPOSOME 1.3% 266 MG/20 ML VIAL ONE (11:04)
--- NOTE | 2022-02-26 11:07 | History & Physical Bridge Note ---
Date of Service February 26, 2022 History & Physical Bridge Note I have examined the patient, reviewed the History & Physical and in the interval since the performance of the History & Physical I have noted the following changes of clinical significance: no changes noted
[2022-02-26] MEDS ORDERED: ONDANSETRON INJ 2 MG/ML 2 ML VIAL ONE (11:31)
--- NOTE | 2022-02-26 13:37 | Operative Report ---
PG Post Operative Report Pre & Post Diagnosis Operation Date: 02/26/22 10:40 Pre-Op Diagnosis: Right Knee Osteoarthritis Post-Op Diagnosis: Right Knee Osteoarthritis I identified the patient and participated in the time-out.: Yes Procedure Operation Date: 02/26/22 10:40 Actual Procedures p Right Total Knee Arthroplasty(Right) - Edward Burns MD Surgeon Edward Burns MD Tag Marker Brady Garza PA-C Estimated Blood Loss 100 Findings Consistent with Post-Op Diagnosis Operative findings revealed right knee DJD. He had fairly extensive tricompartment grade 4 [id number] disease. There is not much eburnation just full-thickness cartilage loss in all 3 compartments. Fluids 1500 cc Specimens Right knee sent for pathology Anesthesia Type Spinal MAC Complications none Disposition Accompanied Patient To Recovery: No Indications Patient is 76-year-old gentleman said a long history of bilateral knee pain discomfort. Is been through extensive conservative treatment the past which became less successful. He did have his left knee replaced about 3 years ago and is done well with this. Continued be limited by right knee pain. He elected proceed with surgical treatment. Of note, this patient has a nickel allergy so we used the [employer] zirconium journey to knee replacement and sutures on the skin at his request. Description of Procedure Operative implants consisted of: 1. [employer] journey 2 right posterior stabilized femoral component. 2. [employer] journey 2 size 6 right tibial tray. 3. 9 mm posterior stabilized polyethylene insert. 4. 35 x 9 all Paller patella. The patient was taken the operating, identified, and placed on the operating table supine position protectors were properly padded. IV antibiotics tried by anesthesia team. A spinal anesthetic and abductor canal block had provided holding area. Kirkland catheter was placed in sterile fashion. Right Tetrick was then placed in the right lower extremities and prepped and draped in usual sterile fashion. The right leg was elevated exsanguinated with use of an Esmarch in terms playset 300 mg meters of mercury. An anterior approach of the right knee was then performed to longitudinal incision centered over the patella. Sharp dissection Through subcutaneous this down the extensor mechanism. A medial parapatellar arthrotomy incision was made. Some subperiosteal dissection was carried out medially. The fat pad was dissected from Neath patella tendon. Lateral patellofemoral ligament was released. Patella subluxated laterally and the knee was flexed. The osteophytes were taken off distal femur. The ACL and PCL were then released from distal femur and the tibia subluxated anteriorly. The external tibial alignment jig was placed in the interface the tibia and adjusted 8 mm medially. Proximal tibial cut was made remove about a millimeter bone from most deficient aspect medial tibial plateau. Some osteophytes taken off medial and posterior medially. The tibia sized to a size 6. Attention drawn the femur. The distal femur examined the sharp drop with intramedullary canal was suction. A right 6 degree valgus cutting guide was placed. Distal femoral cutting block was pinned in place. Distal femoral cut was made to take an additional 2 mm of bone off distal femur. The femur was then sized to a size 7. Sized exactly to a 7. The AP cutting block was pinned parallel to the epicondylar axis which was 5 degrees of external rotation. The anterior cut, anterior cord, posterior cut, posterior chamfer, anterior chamfer cuts were made. The knee was then flexed. The remnants of the medial lateral menisci menisci were excised. The osteophytes were taken off the posterior aspect of the femur. The trial femoral component was placed. The trochlear device was placed in the distal femur was milled for the trochlea and intercondylar notch area. The trial implant was assembled. The tibial tray was pinned in maximum external rotation and the drill and stem punch were used to create defect in proximal tib-fib tibia for the tibial tray. The knee was then trialed a 9 mm insert fit most appropriately. Attention drawn the patella. The patella was cleaned of all soft tissues. Patella thickness measured 23 mm in thickness was cut down to 15. Was sized to a size 35 patella. The lug holes were drilled for 35 patella. The lateral osteophyte was removed. Patella button was placed. Knee was taken through range of motion patella tracked nicely with no thumbs test. Attention drawn to place the permanent components. Nupathe all trial components were removed. Bone plug was placed in the distal femur limit blood loss. A double batch Palacos G cement was mixed. A [employer] journey 2 size 70 right posterior stabilized femoral component, size 6 tibial tray, a 9 mm insert and a 35 x 9 all Paller patella then cemented in place. Knee was brought out into full extension until cement hardened. Final cement check was then performed. The pericapsular tissues were injected with total 100 cc of combination of 20 cc of Exparel, 30 cc normal saline, 50 cc of quarter percent Marcaine with epinephrine. Patient did receive 1 g tranexamic acid. The tourniquet was then let down for final turn time of 67 minutes. Hemostasis assured use electrocautery. Extensor mechanism closed with combination 1 PDS suture #1 Vicryl suture in [id number] fashion. Extensor mechanism checked found to be intact. Subcutaneous tissue was then closed with 2 Dexon suture in a buried erupted fashion skin was then closed with 3-0 nylon suture in a horizontal mattress fashion. The knee was then cleaned and dried a sterile dressing was Xeroform, 4 fours, sterile cast padding, Jese bandage were applied. Patient then transferred to the recovery room in stable condition. The patient tolerated the procedure well and there were no complications. Brady Garza, my physician workers compensation claims assistant, was present for the entire procedure. His assistance was essential and required for appropriate patient positioning, prepping and draping, surgical exposure, performing the technical details of the operation, placement the implants, closure of the wound, and placement of the sterile bandage. I attest to the content of the Intraoperative Record and any orders documented therein. Any exceptions are noted below.
--- NOTE | 2022-02-26 13:49 | XRay Report ---
XR knee RT 1 or 2V routine CLINICAL HISTORY: Postoperative evaluation. COMPARISON: Knee radiographs April 15, 2019. FINDINGS: Alignment of the total right knee arthroplasty is anatomic. There is no periprosthetic fra cture or unexpected radiopaque foreign body. IMPRESSION: Expected findings following total right knee arthroplasty. ACT 112: Negative or not required by law. Electronically signed by: Bala Mederos M.D. 02/26/2022 1:48 PM
--- NOTE | 2022-02-26 14:26 | Anesthesiology Progress Note ---
Date of Service February 26, 2022 Anesthesia Post Procedure Vital Signs Vital Signs: Temp Pulse Resp BP Pulse Ox 02/26/22 14:15 36.3 C L 70 13 121/67 93 02/26/22 14:05 36.3 C L 76 15 127/74 96 02/26/22 13:55 79 18 124/69 98 02/26/22 13:45 75 16 130/68 99 02/26/22 13:35 79 18 128/73 99 02/26/22 13:27 36.2 C L 88 20 120/66 96 02/26/22 08:49 36.6 C 70 20 156/77 H 98 Pain Intensity Right Knee: Pain Intensity: 0 Transfer of Care Handoff Completed per policy Notes Mental Status: alert / awake / arousable Patient Amnestic to Procedure: Yes Nausea / Vomiting: adequately controlled Pain: adequately controlled Airway Patency, RR, SpO2: stable & adequate BP & HR: stable & adequate Hydration State: stable & adequate Anesthetic Complications: no major complications apparent
[2022-02-26] MEDS ORDERED: MAGNESIUM HYDROXIDE SUSP 30 ML UDC PO PRN (14:32)
[2022-02-26] MEDS ORDERED: METOCLOPRAMIDE HCL INJ 5 MG/ML 2 ML VIAL IV PRN (14:32)
[2022-02-26] MEDS ORDERED: NALOXONE HCL 0.4 MG/1 ML VIAL/CARP IV PRN (14:32)
[2022-02-26] MEDS ORDERED: HYDROmorphone INJ 0.5 MG/0.5 ML SYR IV PRN (14:32)
[2022-02-26] MEDS ORDERED: diphenhydrAMINE Capsule 25 MG CAP PO PRN (14:32)
[2022-02-26] MEDS ORDERED: oxyCODONE HCL IR 5 MG TAB (IMMEDIATE RELEASE) PO PRN (14:32)
[2022-02-26] MEDS ORDERED: ALUMINUM/MAGNESIUM SUSP 30 ML UDC PO PRN (14:32)
[2022-02-26] MEDS ORDERED: bisacodyL 10 MG SUPP PR PRN (14:32)
[2022-02-26] MEDS ORDERED: ONDANSETRON INJ 2 MG/ML 2 ML VIAL IV PRN (14:32)
[2022-02-26] MEDS ORDERED: dexAMETHasone 10 MG in SYRINGE 0 ML IV SCH (15:00)
[2022-02-26] MEDS ORDERED: CHOLECALCIFEROL 1,000 UNITS 25 MCG TAB PO SCH (15:06)
[2022-02-26] MEDS: ACETAMINOPHEN 500 MG TAB PO SCH ×2 (15:56→21:50)
[2022-02-26] MEDS: KETOROLAC TROMETHAMINE 15 MG/ML VIAL IV SCH ×2 (15:56→20:16)
[2022-02-26] MEDS: SODIUM CHLORIDE 0.9% 1000ML 1,000 ML IV SCH (16:44)
[2022-02-26] MEDS: ceFAZolin 2000MG 2,000 MG/15 ML SYR IV SCH (18:30)
[2022-02-26] MEDS ORDERED: TRANEXAMIC ACID / 0.7% NACL 1,000 MG/100 ML BAG IV SCH (19:30)
[2022-02-26] MEDS: ASPIRIN 81 MG ECTAB PO SCH (20:17)
[2022-02-26] MEDS: PANTOprazole 40 MG TAB PO SCH (20:17)
[2022-02-26] MEDS ORDERED: DOCUSATE SODIUM 100 MG CAP PO SCH ×2 (21:00)
[2022-02-26] MEDS ORDERED: SENNA 8.6 MG TAB PO SCH (21:00)
[2022-02-26] MEDS ORDERED: NON-FORMULARY MEDICATION (Docusate Sodium [Stool Softener] 100 mg Tablet) PO SCH (21:00)
[2022-02-26] MEDS ORDERED: LISINOPRIL/HCTZ 20/25MG 1 TAB PO SCH (21:00)
[2022-02-27] MEDS: KETOROLAC TROMETHAMINE 15 MG/ML VIAL IV SCH ×2 (02:24→07:53)
[2022-02-27] MEDS: ceFAZolin 2000MG 2,000 MG/15 ML SYR IV SCH (02:24)
[2022-02-27] MEDS: SODIUM CHLORIDE 0.9% 1000ML 1,000 ML IV SCH (02:26)
[2022-02-27] MEDS: ACETAMINOPHEN 500 MG TAB PO SCH (06:00)
[2022-02-27 06:10] LABS: BUN Creatinine Ratio 33.8 (10-20); Creatinine Clr Calc Pharmacy 99.3 ml/min; Est GFR (Non-African American) 91.5 ml/min
[2022-02-27 06:34] LABS: Hematocrit (blood only) 34.1 % (42-52); Hemoglobin 11.7 g/dL (14.0-18.0); Mean Corpuscular Hemoglobin 31.1 pg (25-34); Mean Corpuscular Hgb Conc 34.3 g/dL (32-36); Mean Corpuscular Volume 90.7 fL (80-100); Mean Platelet Volume 9.2 fL (7.4-10.4); Platelet Count 215 K/uL (130-400); RDW Coefficient of Variation 12.6 % (11.5-14.5); Red Blood Count 3.76 M/uL (4.7-6.1); White Blood Count 8.32 K/uL (4.8-10.8)
[2022-02-27] MEDS: PANTOprazole 40 MG TAB PO SCH (07:52)
[2022-02-27] MEDS: ASPIRIN 81 MG ECTAB PO SCH (07:52)
[2022-02-27] MEDS ORDERED: TAMSULOSIN HCL 0.4 MG CAP PO SCH (09:00)
[2022-02-27] MEDS ORDERED: ASCORBIC ACID 500 MG TAB PO SCH (09:00)
[2022-02-27] MEDS ORDERED: DOCUSATE SODIUM 100 MG CAP PO SCH (09:00)
[2022-02-27] MEDS ORDERED: DOCUSATE SODIUM/SENNA 50/8.6MG TAB PO SCH (09:00)
[2022-02-27] MEDS ORDERED: bisacodyL 5 MG TABEC PO SCH (09:00)
[2022-02-27] MEDS ORDERED: MULTIVITAMIN TAB PO SCH (09:00)
[2022-02-27] MEDS ORDERED: amLODIPine BESYLATE 5 MG TAB PO SCH (09:00)
[2022-02-27] MEDS ORDERED: ATORVASTATIN 10 MG TAB PO SCH (09:00)
--- NOTE | 2022-02-27 12:07 | Progress Notes ---
DATE OF SERVICE: 02/27/2022. SUBJECTIVE: A 76-year-old gentleman postoperative day 1 from a right knee replacement. He is doing pretty well. Pain is controlled. Therapy went reasonably well. No chest pain or shortness of breat h. Not feeling dizzy or lightheaded. He is hoping to go home. OBJECTIVE: VITAL SIGNS: Temperature 36.8. Vital signs are stable. PHYSICAL EXAMINATION: GENERAL: Shows a pleasant elderly male. He is sitting up in bed and looks pretty comfortable. EXTREMITIES: Examination of the right leg reveals the dressing to be clean, dry and intact. Leg is well aligned. He can dorsiflex and plantarflex his foot appropriately. He can do a straight leg pinto se. LABORATORY DATA: Hemoglobin 11.7. Hematocrit 34.1. Electrolytes are stable. ASSESSMENT: A 76-year-old gentleman postoperative day 1 from a right knee replacement. He is doing pretty well. His pain is controlled. Therapy went well. PLAN: 1. DVT prophylaxis includes thigh-high TEDs, SCDs, and aspirin. 2. PT, OT, weightbear as tolerated. Right total knee protocol. 3. Pain control, doing okay with current pain regimen. 4. Disposition: Plan to discharge to home with some home health later today. Job ID: [id number]
--- NOTE | 2022-03-02 07:34 | Discharge Summary ---
Date of Service March 02, 2022 Discharge Data Procedures Performed Operation Date: 02/26/22 10:40 Actual Procedures p Right Total Knee Arthroplasty(Right) - Edward Burns MD Hospital Course (1) Status post total right knee replacement: This is a 76 year old patient admitted on 02/26/22 and underwent total knee arthroplasty. He tolerated the procedure well and there were no complications. Transferred to the PACU post op and later to the orthopedic floor for further care. He was given ancef for antibiotic prophylaxis. He was also given ARIE stockings, SCDs, and aspirin for DVT prophylaxis. Hemoglobin, hematocrit, and vital signs were monitored during his hospital stay and remained stable. Did not require any blood transfusions. There were no complications during his hospital stay. By post op day #1 the patient was tolerating a regular diet, pain was reasonably controlled with oral pain medicine, and he was participating in physical therapy. On post op day #1 the patient was discharged home and set up with home health care. He was given printed discharge instructions including prescriptions for extra strength tylenol, aspirin, toradol, zofran, flomax, and oxycodone. Continue physical therapy, weight bearing as tolerated. Continue ARIE stockings. Follow up approximately 2 weeks post op or sooner if there are problems or concerns. Coding Level of Care Code None Diagnoses Status post total right knee replacement Z96.651
== END 2022-02-27 13:35 | disposition home health service (06) ==
LOC: ASU 07:58 → PACUINP 07:58 → 3N 16:26

== ENCOUNTER 2023-01-31 08:59 | Observation (INO) ==
--- NOTE | 2022-12-26 09:37 | PAT Medication Instructions ---
Medication Instructions Date of Service December 26, 2022 Home Medications amlodipine 10 mg tablet 10 mg PO QAM ascorbic acid (vitamin C) 1,000 mg tablet (Vitamin C) 1 g PO QAM aspirin 81 mg tablet,delayed release (Aspir-) 81 mg PO QAM atorvastatin 10 mg tablet 10 mg PO QAM lisinopril 20 mg-hydrochlorothiazide 25 mg tablet 1 tab PO HS omeprazole 40 mg capsule,delayed release 40 mg PO BID cholecalciferol (vitamin D3) 25 mcg (1,000 unit) tablet (Vitamin D3) 25 mcg PO Q2D docusate sodium 100 mg capsule (Stool Softener) 200 mg PO QAM docusate sodium 100 mg tablet (Stool Softener) 100 mg PO QPM multivitamin 1 tab PO QAM fluticasone propionate 50 mcg/actuation nasal spray,suspension 1 spray intranasal QAM naproxen sodium 220 mg tablet (Aleve) 220 mg PO QAM PRN Pain ASK your surgeon for instructions naproxen sodium 220 mg tablet (Aleve) 220 mg PO QAM PRN Pain ASK your prescriber and surgeon aspirin 81 mg tablet,delayed release (Aspir-) 81 mg PO QAM DO NOT take the morning of surgery ascorbic acid (vitamin C) 1,000 mg tablet (Vitamin C) 1 g PO QAM cholecalciferol (vitamin D3) 25 mcg (1,000 unit) tablet (Vitamin D3) 25 mcg PO Q2D docusate sodium 100 mg capsule (Stool Softener) 200 mg PO QAM multivitamin 1 tab PO QAM Take morning of surgery With a small sip of water, OTHERWISE NOTHING TO EAT OR DRINK AFTER MIDNIGHT: amlodipine 10 mg tablet 10 mg PO QAM atorvastatin 10 mg tablet 10 mg PO QAM omeprazole 40 mg capsule,delayed release 40 mg PO BID fluticasone propionate 50 mcg/actuation nasal spray,suspension 1 spray intranasal QAM Take evening before surgery lisinopril 20 mg-hydrochlorothiazide 25 mg tablet 1 tab PO HS omeprazole 40 mg capsule,delayed release 40 mg PO BID docusate sodium 100 mg tablet (Stool Softener) 100 mg PO QPM Other Notes If you have any questions please call us at [phone] or [phone] or [phone] or [phone]
--- NOTE | 2023-01-01 13:14 | Anesthesiology Consultation ---
Date of Service January 01, 2023 Assessment & Plan (1) Encounter for pre-operative examination: Chart Review Chart Review: Acceptable Risk for Surgery (pending cardio clearance for abnormal EKG ) and Patient seen in Pre Admission Testing - Will set up cardio clearance due to new onset bifascicular block Requests head support due to kyphosis during procedure - Cannot tolerate stephanie due to metal allergy - Pt is not an OPJ candidate due to age Per PAT appt on 01/01/23, patient denies any recent travel or large group activities. Pt is vaccinated for Covid. Will leave to surgeon's discretion if preop Covid testing needed. Educated on importance of using Covid precautions one week prior to surgery Right TKA 02/26/22= Done under SAB at L3-4 with 1 attempt. Teaching & Discussion Pre-Anesthesia Teaching/Discussion Notes: Instructed NPO after midnight before surgery,except medications with 15 cc of water. Medication instructions provided according to the PAT guidelines. History Surgery Operation Date: 01/31/23 13:05 Proposed Procedures p Right Total Shoulder Arthroplasty Reverse - Moody Loco, Height/Weight Height: 5 ft 8 in Weight: 89.2 kg Allergies Allergy/AdvReac Type Severity Reaction Status Date / Time nickel Allergy Intermediate Swelling/pain Verified 12/25/22 09:35 at surgery site (knee) adhesive Allergy Mild Skin Verified 12/25/22 09:35 redness/blister METALS Allergy Unknown SEE COMMENT Uncoded 12/25/22 09:40 Medications Home Medications Medication Instructions Recorded Confirmed Last Taken amlodipine 10 mg tablet 10 mg PO QAM 05/10/19 12/25/22 07/16/22 ascorbic acid (vitamin C) 1,000 mg 1 g PO QAM 05/10/19 12/25/22 07/16/22 tablet (Vitamin C) aspirin 81 mg tablet,delayed 81 mg PO QAM 05/10/19 12/25/22 07/16/22 release (Aspir-) atorvastatin 10 mg tablet 10 mg PO QAM 05/10/19 12/25/22 07/16/22 lisinopril 20 1 tab PO HS 05/10/19 12/25/22 07/16/22 mg-hydrochlorothiazide 25 mg tablet omeprazole 40 mg capsule,delayed 40 mg PO BID 09/09/19 04/26/23 11/15/22 release cholecalciferol (vitamin D3) 25 25 mcg PO Q2D 08/06/21 12/25/22 07/16/22 mcg (1,000 unit) tablet (Vitamin D3) docusate sodium 100 mg capsule 200 mg PO QAM 08/06/21 12/25/22 07/16/22 (Stool Softener) docusate sodium 100 mg tablet 100 mg PO QPM 08/06/21 12/25/22 07/16/22 (Stool Softener) multivitamin 1 tab PO QAM 07/12/22 12/25/22 07/16/22 fluticasone propionate 50 1 spray intranasal QAM 12/25/22 12/25/22 Unknown mcg/actuation nasal spray,suspension naproxen sodium 220 mg tablet 220 mg PO QAM PRN Pain 12/25/22 12/25/22 Unknown (Wilberto) Past Medical History Medical History Chronic back pain DVT (deep venous thrombosis) LLE x2 (most recent 14 years ago) felt r/t long flight- now on ASA GERD (gastroesophageal reflux disease) Well controlled and stable on medications Hx of renal calculi Hyperlipidemia Hypertension Multiple myeloma Hx chemo, in remission per pt Nausea and vomiting after administration of anesthetic agent ~35 yrs ago, after general anesthesia Sciatic leg pain No recent issues Seasonal allergies Sleep apnea CPAP (compliant) Exercise / Class Metabolic Activity II 4-5 Yardwork/Stairs/Walk up hill (one flight of stairs - no chest pain or SOB ) Past Family History Family History Mother Family hx colonic polyps Other No family history of adverse response to anesthesia Past Surgical History Surgical History History of ankle surgery LEFT ANKLE FUSION History of carpal tunnel surgery of right wrist History of colonoscopy History of esophagogastroduodenoscopy (EGD) History of parathyroidectomy History of total knee replacement Left TKA (03/26/18): SAB at L3/4 + PNB at [facility]. No issues noted per post-op anesthesia progress note. History of total right knee replacement (TKR) Hx of cataract extraction rt/lt Hx of cystoscopy w/removal kidney stones, stents placed and removed Hx of hernia repair Hx of vasectomy Status post epidural steroid injection Past Anesthesia History No Hx of Anesthesia Complications (with exception to PONV (>35 years ago with GA)) and No Family Hx of Anesthesia Complications History of PONV No Hx of Motion Sickness and History of PONV (no issues x 20 years ) Social History Smoking Status: Former smoker tobacco type: cigarettes Smoking cigarettes per day: QUIT 1968 OR 1969 Do You Dip or Chew Tobacco: No Hx Alcohol Use: Yes Alcohol type: beer and wine alcohol intake frequency: a few times a month Hx Substance Use: No substance use type: does not use Review of Systems Patient denies chest pain, shortness of breath, dyspnea on exertion, cough, wheezing, palpitations. No hx of seizures, stroke, NV. No hx of blood transfusions Physical Exam Vital Signs VITALS BP 161/80 (usually 140s systolically per patient) P 67 TEMP 98.2 SP02 98% RESP 16 Constitutional no acute distress ENMT Mouth: no TMJ clicking Thyromental Distance: > or= 3.5 Finger Breadths (4.0) Mallampati Class: III Missing molars Neck neck extension not limited Respiratory normal respiratory effort; no respiratory distress Auscultation: lungs clear to auscultation bilaterally; no wheezes Cardiovascular Rate/Rhythm: regular rate and regular rhythm Heart Sounds: no murmur Vessels: no carotid bruit Musculoskeletal Spine: + kyphosis (requests support for head during surgery); no pain with cervical ROM Extremities: extremities normal to inspection Psychiatric Orientation: alert Lab Results Anesthesia Preop Results Results Anesthesia Widget: WBC 4.40 K/ul (4.8-10.8) L 01/01/23 Hgb 11.9 g/dl (14.0-18.0) L 01/01/23 Hct 35.0 % (42.0-52.0) L 01/01/23 Plt 246 K/uL (130-400) 01/01/23 Na 136 mmol/L (136-145) 01/01/23 K 3.6 mmol/L (3.5-5.1) 01/01/23 Cl 97 mmol/L (98-107) L 01/01/23 CO2 32 mmol/L (21-32) 01/01/23 BUN 13 mg/dl (6-23) 01/01/23 Creat 0.50 mg/dl (0.6-1.4) L 01/01/23 Glucose Level 85 mg/dl (70-99(Fasting)) 01/01/23 PT 11.4 Seconds (9.0-12.0) 01/01/23 PTT 27.2 Seconds (21.0-31.0) 01/01/23 INR 1.0 (0.9-1.1) 01/01/23 Blood Type O Positive 01/01/23 Antibody Screen NEGATIVE 01/01/23 Testing Electrocardiogram Date: 01/01/23 SR with PACs at 66bpm RBBB. LAFB Bifascicular block When compared to EKG from February 22, 2022- PACs are now present, RBBB is now present Chest X-Ray Date: 01/01/23 FINDINGS: Cardiac silhouette is normal in size. No pleural effusions. No pneumothorax. There are low lung volumes. Calcifications within the aortic knob. A few bibasilar linear densities consistent with subsegmental atelectasis. Otherwise, the lungs are clear. Mild anterior wedging again noted within multiple thoracic spine vertebral bodies. This is considered to be chronic. IMPRESSION: No significant change compared to the prior study. No acute process. COVID-19 Risk Screen Screening Information COVID-19 Screen Date: 01/01/23 Exposure 21 Days Family/Household +COVID Last 21 Days: No Exposure 10 Days Any COVID Exposure Last 10 Days: No Symptoms Last 10 Days Experienced COVID Sx Last 10 Days: No + COVID 0-90 Days COVID + in Last 0-90 Days: No Risk Plan COVID Risk Plan: No Risk Identified Patient Education COVID Preop Screening Education Complete: Yes
[~2023-01-31 08:59] MED LIST changes: -BUPIVACAINE 0.25% 30 ML VIAL ONE; -BUPIVACAINE LIPOSOME/PF 266 MG, BUPIVACAINE/EPINEPHRINE 50 ML, SODIUM CHLORIDE 0.9% 30 ... INFIL SCH; -DEXAMETHASONE SOD INJ 4 MG/ML VIAL ONE; -EPINEPHrine INJ 1 MG/ML AMP ONE; +LR 15ML/HR IV SCH; -LR 500ML BOLUS, THEN 15ML/HR IV SCH; -METOCLOPRAMIDE HCL 10 MG TABLET PO SCH; +ORTHO JOINT MIX INFIL SCH; +TRANEXAMIC ACID 1,000 MG **IV Pre-op IV SCH; +dexAMETHasone 4 MG TAB PO SCH
[2023-01-31] MEDS ORDERED: PROPOFOL IV EMULSION 10 MG/ML 20 ML VIAL IV ONE (10:59)
[2023-01-31] MEDS ORDERED: LIDOCAINE 2% 2 ML VIAL/AMP(20MG/ML) INFIL ONE (11:00)
[2023-01-31] MEDS ORDERED: MIDAZOLAM HCL 1 MG/ML 2ML VIAL ONE (11:00)
--- NOTE | 2023-01-31 11:00 | History & Physical Bridge Note ---
Date of Service January 31, 2023 History & Physical Bridge Note I have examined the patient, reviewed the History & Physical and in the interval since the performance of the History & Physical I have noted the following changes of clinical significance: no changes noted
[2023-01-31] MEDS ORDERED: ORTHO JOINT ANESTHETIC ONE (11:43)
[2023-01-31] MEDS ORDERED: fentaNYL citrate PF 100 MCG/2 ML VIAL IV PRN (11:48)
[2023-01-31] MEDS ORDERED: HYDROmorphone INJ 2 MG/ML SYR/VIAL IV PRN (11:48)
[2023-01-31] MEDS ORDERED: ePHEDrine sulfate 50 MG/ML AMP IV PRN (11:48)
[2023-01-31] MEDS ORDERED: ONDANSETRON INJ 2 MG/ML 2 ML VIAL IV PRN ×2 (11:48→14:55)
[2023-01-31] MEDS ORDERED: PROMETHAZINE HCL 12.5 MG in SODIUM CHLORIDE 0.9% 50 ML IV PRN (11:48)
[2023-01-31] MEDS ORDERED: ATROPINE SULFATE 0.1 MG/ML 10ML SYR IV PRN (11:48)
[2023-01-31] MEDS ORDERED: ePHEDrine sulfate 50 MG/ML AMP ONE (13:14)
--- NOTE | 2023-01-31 13:19 | Operative Report ---
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 A tenodesis was opted. This was a separate and distinct portion of the procedure. For these reasons, a CPT code modifier 59 will be added to this case. Implants used: I used a [employer] Comprehensive reverse total shoulder arthroplasty system with a size 14 press fit micro humeral stem, a +6 offset humeral tray and a +3 retentive humeral bearing, a 25 mm small augment baseplate with a 6.5 mm central screw and superior and inferior locking screws, and a size 40 mm eccentric glenosphere. Mp arrived at [facility] for the above procedure. He was seen in the preoperative holding area and the operative extremity was identified and signed. He was given a preoperative antibiotic, TXA, and an interscalene nerve block. He was taken back to the operating room, laid on table in supine position, and put under general anesthesia. He was then put into the beachchair position. The shoulder was then prepped and draped in sterile fashion. A timeout was done and the patient and the operative extremity was properly identified. A deltopectoral approach was used. Dissection was taken down through the fascia and the deltoid was retracted laterally and the conjoined tendon was retracted medially. The anterior shoulder was exposed. The biceps groove was opened up and the biceps tendon was examined extensively. The biceps tendon demonstrated enlargement and inflammatory changes consistent with longstanding inflammation in the context of osteoarthritis and cuff arthropathy. The long head of the biceps tendon was then tenodesed to the upper border of the pectoralis major. This was a separate and distinct portion of the procedure. The subscapularis was then directly released off the lesser tuberosity with a peel technique. The inferior capsule was released and the humeral head was dislocated. A canal finding reamer was sent down the center of the humeral canal. Sequential reaming up to a size 14 reamer was done. Off that reamer, a proximal humeral resection guide was placed. The proximal humerus was resected at 135 of inclination and 25 of retroversion. Osteophytes were then removed and the glenoid was exposed. Time was spent doing a complete capsular and labral release. The glenoid guide was then placed in the inferior aspect of the glenoid. A 3.2 mm Steinmann pin was then placed into the glenoid vault at 10 of inclination. The glenoid baseplate was then reamed. The final size 25 mm small augment baseplate was then impacted in the place. A 6.5 mm central screw was then placed followed by superior and inferior locking screws. A 40 mm eccentric glenosphere was then impacted into place. Surrounding soft tissues were then injected with 100 cc an orthopedic pain control cocktail. The proximal humerus was then exposed. Sequential broaching of the humerus up to a size 14 broach was done. Off that broach a +6 offset and +3 retentive humeral tray was trialed. The shoulder was then reduced, brought through a full range of motion, and felt to be stable. The shoulder was then dislocated and the broach was removed. The final size 14 micro press-fit humeral stem was then impacted into place. A +3 retentive humeral bearing was then snapped onto a +6 offset humeral tray. The humeral tray was then impacted onto the humeral stem. The shoulder was once again reduced, brought through a full range of motion, and felt to be stable. The subscapularis was retracted and unable to be repaired. A dilute betadyne lavage was then done for 3 minutes. The joint was then irrigated with normal saline solution. Hemostasis was obtained. The interval was closed with 2-0 Vicryl suture. The skin was then closed with 2-0 Vicryl and stephanie. A Silverlon dressing was placed and the arm was rested in a regular arm sling. He was then extubated and transferred to a hospital bed. He taken to the postanesthesia care unit in stable condition. He tolerated the procedure well. Moody Haines PA-C, was present for the entire procedure. He was critical for patient positioning, prepping, draping, retraction exposure, wound closure and application of sterile dressing. I attest to the content of the Intraoperative Record and any orders documented therein. Any exceptions are noted below.
--- NOTE | 2023-01-31 14:12 | XRay Report ---
XR shoulder RT min 2V routine CLINICAL HISTORY: Post shoulder surgery COMPARISON STUDY: None. FINDINGS: Status post reverse right total shoulder arthroplasty. Hardware appears intact. No fracture or dislocation. IMPRESSION: Postoperative changes consistent with a right total shoulder arthroplasty. ACT 112: Negative or not required by law. Electronically signed by: Alcon Miller M.D. 01/31/2023 2:11 PM
--- NOTE | 2023-01-31 14:17 | Anesthesiology Progress Note ---
Date of Service January 31, 2023 Anesthesia Post Procedure Vital Signs Vital Signs: Temp Pulse Pulse Resp BP Pulse Ox O2 Del Method 01/31/23 14:00 36.5 C 79 21 133/88 94 Room Air 01/31/23 13:50 82 19 144/75 H 95 Room Air 01/31/23 13:41 36.2 C L 81 16 153/83 H 97 Room Air 01/31/23 09:34 36.5 C 63 18 158/78 H 98 Room Air Pain Intensity Right Shoulder: Pain Intensity: 2 Transfer of Care Handoff Completed per policy Notes Mental Status: alert / awake / arousable Patient Amnestic to Procedure: Yes Nausea / Vomiting: adequately controlled Pain: adequately controlled Airway Patency, RR, SpO2: stable & adequate BP & HR: stable & adequate Hydration State: stable & adequate Anesthetic Complications: no major complications apparent
[2023-01-31] MEDS ORDERED: HYDROmorphone INJ 0.5 MG/0.5 ML SYR IV PRN (14:55)
[2023-01-31] MEDS ORDERED: NALOXONE HCL 0.4 MG/1 ML VIAL/CARP IV PRN (14:55)
[2023-01-31] MEDS ORDERED: oxyCODONE HCL IR 5 MG TAB (IMMEDIATE RELEASE) PO PRN (14:55)
[2023-01-31] MEDS ORDERED: bisacodyL 10 MG SUPP PR PRN (14:55)
[2023-01-31] MEDS ORDERED: METOCLOPRAMIDE HCL INJ 5 MG/ML 2 ML VIAL IV PRN (14:55)
[2023-01-31] MEDS ORDERED: SODIUM CHLORIDE 0.9% 1000ML 1,000 ML IV SCH (14:55)
[2023-01-31] MEDS ORDERED: MAGNESIUM HYDROXIDE SUSP 30 ML UDC PO PRN (14:55)
[2023-01-31] MEDS: ACETAMINOPHEN 500 MG TAB PO SCH ×2 (15:30→22:12)
[2023-01-31] MEDS: KETOROLAC TROMETHAMINE 15 MG/ML VIAL IV SCH ×2 (15:31→20:29)
[2023-01-31] MEDS: ceFAZolin 2000MG 2,000 MG/15 ML SYR IV SCH (20:29)
[2023-01-31] MEDS: DOCUSATE SODIUM 100 MG CAP PO SCH (20:30)
[2023-01-31] MEDS: PANTOprazole 40 MG TAB PO SCH (20:31)
[2023-01-31] MEDS ORDERED: SENNA 8.6 MG TAB PO SCH (21:00)
[2023-01-31] MEDS ORDERED: LISINOPRIL/HCTZ 20/25MG 1 TAB PO SCH (21:00)
[2023-02-01] MEDS: ceFAZolin 2000MG 2,000 MG/15 ML SYR IV SCH (02:52)
[2023-02-01] MEDS: KETOROLAC TROMETHAMINE 15 MG/ML VIAL IV SCH ×2 (02:53→08:03)
[2023-02-01] MEDS: ACETAMINOPHEN 500 MG TAB PO SCH (05:43)
[2023-02-01] MEDS ORDERED: dexAMETHasone 4 MG TAB PO SCH (08:00)
[2023-02-01] MEDS: DOCUSATE SODIUM 100 MG CAP PO SCH (08:03)
[2023-02-01] MEDS: PANTOprazole 40 MG TAB PO SCH (08:03)
--- NOTE | 2023-02-01 08:11 | Orthopedic Progress Note ---
Date of Service February 01, 2023 Assessment & Plan (1) Status post reverse total replacement of right shoulder: Overall he is doing very well. He is not having much pain in the right shoulder. He will be seen by physical therapy today for ambulation and range of motion exercises. He can be discharged home later today. He will follow-up with orthopedics in 2 weeks. [place] was seen and examined at bedside this morning. Overall he is doing very well. He is not having much pain in the right shoulder. He was able to get some sleep last night. He has no complaints.. Review of Systems All systems reviewed & are unremarkable except as noted in HPI & below. Physical Exam On physical examination of the right shoulder, the dressing is clean and dry. He has active motion of his hand and his wrist. He still has some numbness in his thumb.. Results & Data Results & Data Laboratory Results . Diagnostic Findings Postoperative x-rays of the right shoulder show the prosthesis to be in anatomic alignment without any evidence of fracture, dislocation, or loosening.. PG Care Time/CCT Total # of Minutes Spent Total Time Spent with Patient: Total time spent is greater than 50% in coordination of care (as documented) at patient's floor/unit and/or counseling patient: Coding Level of Care Code 64025 Post Operative Follow-Up Diagnoses Status post reverse total replacement of right shoulder Z96.611
--- NOTE | 2023-02-01 08:12 | Discharge Summary ---
Date of Service February 01, 2023 Principal Diagnosis Same as "Discharge Diagnosis" noted below under Discharge Instructions. Discharge Exam On physical examination of the right shoulder, the dressing is clean and dry. He has active motion of his hand and his wrist. He still has some numbness in his thumb.. Discharge Data Procedures Performed Operation Date: 01/31/23 11:00 Actual Procedures p Right Reverse Total Shoulder Arthroplasty(Right) - Moody Loco DO Ordered Studies 01/31/23 05:00 US - OR guided needle placemen Routine Hospital Course (1) Status post reverse total replacement of right shoulder: On January 31, 2023 Mp arrived at [facility] and underwent a right reverse shoulder replacement without complication. He had a general anesthetic and a right interscalene nerve block. Postoperatively he was placed in a sling and transferred to the general orthopedic floors. His hospital course was uneventful. On postop day #1, his vital signs were stable and his pain was well controlled. He was able to participate well with physical therapy doing ambulation and range of motion exercises. He was then discharged home. He will follow-up with orthopedics in 2 weeks. PG Care Time/CCT Total # of Minutes Spent Total Time Spent with Patient: Total time spent is greater than 50% in coordination of care (as documented) at patient's floor/unit and/or counseling patient: Discharge Plan Discharge Items Patient Disposition: Home - Home Health Services Reason For Visit: Right Shoulder Degenerative Joint Disease Discharge Diagnosis: Right reverse shoulder replacement Activity: Per Instructions section Non-emergency contact: Surgeon Call non-emergency contact if: your wound has increased redness and your wound has increased drainage Follow-up/Referrals: Yovana Payan DO [Primary Care Provider] - Diet: Regular Addtl Attending Provider Instructions: Activity and Therapy Recommendations: * If you are using [facility] then therapy will be provided at your home until they feel you have accomplished all of your goals. * If you are using [facility] then Physical Therapy will be provided until they feel you are ready to start Outpatient Physical Therapy. * If you are not using home therapy then Outpatient Physical Therapy should s tart about 3-5 days from your day of surgery. Therapy will last about 8-12 weeks * Wear your sling for 3 weeks, unless otherwise instructed. You may remove your sling to shower and to dress, but otherwise, you should be in your sling at all times, including while sleeping * The shoulder replacement is very stable and you can use your hand while in the sling * You were shown a series of exercises in the hospital. Do these exercises daily including the exercises you were shown in physical therapy. Medications: * Narcotic You will likely be sent home from the hospital with a prescription for the narcotic pain medication that worked best throughout your stay. * Other medications may be prescribed for specific circumstances. If you have any questions, please call the office at . * Resume previous home medications unless otherwise instructed Dressing Care: Leave the Silverlon dressing in place for 7 days. After 7 days you may remove the dressing. If the incision is not draining then you may leave the stephanie open to air. If there is a little bit of drainage or if the stephanie are getting stuck on your clothing then cover the incision with a dry dressing. The stephanie will be removed at your 2 week follow-up appointment. Showering: You may shower with the Silverlon dressing in place. Do not let the shower spray hit the dressing directly. Pat the Silverlon dressing dry. If the dressing becomes wet underneath, then simply remove the dressing. Keep the incision dry until you are 7 days out from the day of surgery. After 7 days you may remove the Silverlon dressing and shower with the stephanie exposed. Let soapy water run over the stephanie and pat them dry. Do not scrub or soak the incision. Things To Watch For: * Drainage from the incision site that occurs more than one week after your surgery. * Increased redness at the incision site. * Fever above 102 degrees Fahrenheit. * Unusual chest pain or shortness of breath. * Call [facility] at with any of the above problems Follow-Up Visit: Follow-up with Dr. Loco's PA (Moody Haines) 2-3 weeks after your day of surgery. He will remove your stephanie and answer any questions. If you have any additional questions or concerns, Dr Loco is usually in the office at the same time and will be available An appointment was probably scheduled when you signed-up for surgery in the office. If you have any questions call More detailed instructions as well as Frequently Asked Questions were provided in a folder by our office when you signed-up for surgery. Please review these instructions when you get home. If you have any further questions or concerns, please feel free to call the office at [phone] Pending Studies at Discharge: No Stand-Alone Forms: [facility] Medications and DC Order Prescriptions: New tramadol 50 mg tablet 50 mg PO Q6H PRN (Reason: pain) Qty: 30 0RF Continued acetaminophen [Tylenol Extra Strength] 500 mg tablet 1,000 mg PO BID PRN (Reason: Pain, Mild) calcium carbonate [Tums Ultra] 400 mg calcium (1,000 mg) tablet,chewable 400 mg PO DAILY PRN (Reason: Acid Reflux) ascorbic acid (vitamin C) [Vitamin C] 1,000 mg Tablet 1 g PO QAM atorvastatin 10 mg Tablet 10 mg PO QAM omeprazole 40 mg Capsule,Delayed Release(Dr/Ec) 40 mg PO BID amlodipine 10 mg Tablet 10 mg PO QAM lisinopril-hydrochlorothiazide 20-25 mg Tablet 1 tab PO HS cholecalciferol (vitamin D3) [Vitamin D3] 25 mcg (1,000 unit) Tablet 25 mcg PO Q2D docusate sodium [Stool Softener] 100 mg Capsule 200 mg PO QAM docusate sodium [Stool Softener] 100 mg Tablet 100 mg PO QPM naproxen sodium [Aleve] 220 mg Tablet 220 mg PO QAM PRN (Reason: Pain) fluticasone propionate [Flonase] 50 mcg/actuation Thermal,Suspension 1 spray INTRANASAL QAM Rx Instructions: administer into each nostril multivitamin Tablet 1 tab PO QAM Discontinued aspirin [Aspir-81] 81 mg Tablet,Delayed Release (Dr/Ec) 81 mg PO QAM Admission Data Admit Date/Time: 01/31/23 13:41 Attending Provider: Moody Loco Admit Provider: Moody Loco Primary Care Provider: Yovana Payan Other Providers: [facility]
[2023-02-01] MEDS ORDERED: ASPIRIN 81 MG ECTAB PO SCH (09:00)
[2023-02-01] MEDS ORDERED: MULTIVITAMIN TAB PO SCH (09:00)
[2023-02-01] MEDS ORDERED: ATORVASTATIN 10 MG TAB PO SCH (09:00)
[2023-02-01] MEDS ORDERED: FLUTICASONE PROPIONATE NA SPR 16 GM BTL SCH (09:00)
[2023-02-01] MEDS ORDERED: amLODIPine BESYLATE 5 MG TAB PO SCH (09:00)
== END 2023-02-01 11:41 | disposition home health service (06) ==
LOC: 3N 08:59 → ASU 08:59